=== PATIENT | female | born 1955 | race Two or more races ===

== ENCOUNTER 2021-06-01 16:38 | Emergency (ER) | payer OTHER ==
[~2021-06-01] VITALS: Ht 157.5 cm; Wt 49.9 kg
[2021-06-01 19:57] VITALS: BP 142/77
[2021-06-01] MEDS ORDERED: TETANUS-DIPTH-ACEL PERTUSSIS 0.5ML SYR Tdap IM ONE ×2 (21:45→21:55)
== END 2021-06-01 22:19 | disposition home or self-care (01) ==
LOC: ER 16:38 → EDBD 16:38 → ER 22:19
DX: S01.01XA Laceration without foreign body of scalp, initial encounter (principal); S70.02XA Contusion of left hip, initial encounter; W01.0XXA Fall on same level from slipping, tripping and stumbling without subsequent striking against object, initial encounter; Y93.89 Activity, other specified; Y92.89 Other specified places as the place of occurrence of the external cause; Y99.8 Other external cause status
CPT/HCPCS: 12002; 70450; 72192; 90471; 90715; J2001